=== PATIENT | male | born 1945 | race Caucasian/White ===

== ENCOUNTER 2024-06-02 12:41 | Outpatient (OUT) | payer MEDICARE, OTHER, SELFPAY ==
--- NOTE | 2024-06-02 12:58 | XR_ITS ---
[place] [id number] Patient Name: ALICIA GARCIA MRN: [id number] date: 1945 Sex: M Assigned Patient Location: [facility] Current Patient Location: Accession/Order Number: [id number] Exam Date: 06/02/2024 15:57 Report Date: 06/03/2024 17:01 At the request of: BINDU HORN MD Procedure: XR chest 2V Plain film chest Single view HISTORY: Preop assessment COMPARISON: None FINDINGS: SUPPORT DEVICES: None POSTSURGICAL CHANGES: None HEART: Within normal limits PULMONARY CJ: Within normal limits MEDIASTINUM: Unremarkable LUNGS AND PLEURA: No acute lung process, pleural effusion or pneumothorax identified. BONY STRUCTURES: No thoracic hyperostosis/so syndesmosis. ADDITIONAL FINDINGS None XR/XR chest 2V IMPRESSION: No acute process. Impression dictated by: Issac Mojica M.D.06/03/2024 5:01 PM Dictation Location: [place] Electronically authenticated by: [id number] Y Date: 06/03/2024 17:01
--- NOTE | 2024-06-02 13:32 | P.GSHP_ITS ---
History of Present Illness History of Present Illness Chief complaint: Bilateral kidney stones; S/P right stent placement Narrative: Mr. Milton Moody is a pleasant 78-year-old male who presents to presurgical testing for scheduled cystoscopy, left RG, left ureter holmium laser, possible left stent placement, possible cystoscopy, right ureter, possible holmium laser, possible stent removal with Dr. Vazquez on 06/05/2024. He presents today with significant complaints of right-sided flank pain and frequency in urination and states that he is ready to be pain-free. Review of Systems ROS Narrative REVIEW OF SYSTEMS: Negative except as stated in HPI, ten or more systems reviewed. Constitutional: No fever, chills, weakness ENT: No sore throat or epistaxis Cardiovascular: No edema, chest pain, palpitations, or activity intolerance Respiratory: No shortness of breath, cough, or wheezing Musculoskeletal: No joint pain or swelling Gastrointestinal: No abdominal pain, constipation, diarrhea, or vomiting Genitourinary: Has complaints of frequency in urination and significant right- sided flank pain Neurological: No numbness, tingling, weakness, or headache Psychiatric: No mood changes PFSH PFS Medical History (Updated 06/02/24 @ 13:12 by Jessie Mckinley) Osteoarthritis ?M19.90 - Unspecified osteoarthritis, unspecified site (ICD-10) Kidney stones ?N20.0 - Calculus of kidney (ICD-10) GERD (gastroesophageal reflux disease) ?K21.9 - Gastro-esophageal reflux disease without esophagitis (ICD-10) Hypothyroidism ?E03.9 - Hypothyroidism, unspecified (ICD-10) Urinary tract infection ?N39.0 - Urinary tract infection, site not specified (ICD-10) Urethral stricture ?N35.919 - Unspecified urethral stricture, male, unspecified site (ICD-10) Right flank pain ?R10.9 - Unspecified abdominal pain (ICD-10) Renal failure ?N19 - Unspecified kidney failure (ICD-10) Personal history of kidney stones ?Z87.442 - Personal history of urinary calculi (ICD-10) Nocturia ?R35.1 - Nocturia (ICD-10) Hypertension ?I10 - Essential (primary) hypertension (ICD-10) 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 - termite treater helper (current) use of anticoagulants (ICD-10) Gallstone ?K80.20 - Calculus of gallbladder without cholecystitis without obstruction (ICD-10) Frequent urination ?R35.0 - Frequency of micturition (ICD-10) Elevated PSA ?R97.20 - Elevated prostate specific antigen [PSA] (ICD-10) Elevated cholesterol ?E78.00 - Pure hypercholesterolemia, unspecified (ICD-10) Coronary artery disease ?I25.10 - Atherosclerotic heart disease of [place] coronary artery without angina pectoris (ICD-10) BPH with urinary obstruction ?N40.1 - Benign prostatic hyperplasia with lower urinary tract symptoms (ICD- 10) ?N13.8 - Other obstructive and reflux uropathy (ICD-10) BMI 25.0-25.9,adult ?Z68.25 - Body mass index [BMI] 25.0-25.9, adult (ICD-10) Surgical History (Updated 06/02/24 @ 13:12 by Jessie Mckinley) History of tonsillectomy and adenoidectomy ?Z90.89 - Acquired absence of other organs (ICD-10) History of cholecystectomy ?Z90.49 - Acquired absence of other specified parts of digestive tract (ICD- 10) History of back surgery ?Z98.890 - Other specified postprocedural states (ICD-10) History of heart artery stent ?Z95.5 - Presence of coronary angioplasty implant and graft (ICD-10) History of lithotripsy ?Z98.890 - Other specified postprocedural states (ICD-10) History of prostate surgery ?Z98.890 - Other specified postprocedural states (ICD-10) History of cystoscopy ?Z98.890 - Other specified postprocedural states (ICD-10) Family History (Updated 06/02/24 @ 13:05 by Jessie Mckinley) Other Family history of COPD (chronic obstructive pulmonary disease) Family history of colon cancer Family history of coronary artery disease Family history of emphysema Family history of heart disease Family history of hypertension Family history of myocardial infarction Social History (Updated 06/02/24 @ 13:03 by Jessie Mckinley) Within the past year, how often did you have a drink containing alcohol: never Score interpretation: A score less than 4 is consistent with normal alcohol consumption. Smoking status: Never smoker Non-prescribed substance use: denies use Previous occupational history: retired Highest level of school completed/degree received: Associate degree: occupational, technical, vocational program Meds Home Medications and Allergies Home Medications ?Medication ?Instructions ?Recorded ?Confirmed ?Type amlodipine 10 mg tablet 10 mg PO DAILY 06/02/24 06/02/24 History aspirin 81 mg chewable tablet 81 mg PO DAILY 06/02/24 06/02/24 History (Aspirin Childrens) levothyroxine 100 mcg capsule 100 mcg PO DAILY 06/02/24 06/02/24 History omeprazole 40 mg capsule,delayed 40 mg PO DAILY 06/02/24 06/02/24 History release phenazopyridine 100 mg tablet 100 mg PO TID 06/02/24 06/02/24 History (Pyridium) Allergies Allergy/AdvReac Type Severity Reaction Status Date / Time morphine Allergy Intermediate syncope Verified 06/02/24 12:59 Exam Narrative Exam Narrative: Constitutional: Awake, alert, comfortable, well-appearing, nontoxic, interactive, vital signs as charted Head: Normocephalic, atraumatic Eyes: Conjunctiva and lids normal to inspection, pupils normal ENT: Tympanic membranes pearly liang, nonerythematous, noninjected, naris patent, posterior oropharynx clear, oral mucosa moist Neck: Supple, normal appearance, normal range of motion, no meningeal signs, no lymphadenopathy Respiratory: No respiratory distress, breath sounds clear Cardiovascular: Regular rate and rhythm, strong and regular heart tones Abdomen: Nontender, normal bowel sounds, soft, with right sided CVA tenderness Musculoskeletal: Normal gait, no swelling or edema Skin: No rashes or induration, no lesions, only visible skin inspected Neuro: No neurological deficits, normal sensation Psychiatric: Oriented ?3, normal affect Assessment and Plan Assessment and Plan (1) Left renal stone: (2) Right kidney stone: Plan Plan is for cystoscopy left RG, left ureter holmium laser, possible left stent placement, cystoscopy, right ureter hospital holmium laser possible right stent removal with Dr. Vazquez on date of surgery 06/05/2024
== END 2024-06-02 12:42 | disposition home or self-care (01) ==
LOC: PST 12:46
PROVIDERS: PCP Family Medicine; Visit Provider Urology
DX: Z01.810 Encounter for preprocedural cardiovascular examination (principal); Z01.818 Encounter for other preprocedural examination; N20.0 Calculus of kidney
CPT/HCPCS: 71046; G0463

== ENCOUNTER 2024-06-05 08:38 | Day surgery (SDC) | payer MEDICARE, OTHER, SELFPAY ==
[2024-06-02 13:03] VITALS: BP 169/65; PULSE 51; TEMP 36.5; O2SAT 96; BMI 25.0
[2024-06-05] VITALS (8 sets, daily range): BP systolic 151–164; BP diastolic 82–93; PULSE 78–90; TEMP 36.3–36.4; O2SAT 93–97; BMI 24.9
[2024-06-05] MEDS: LACTATED RINGER'S SOLUTION 1,000 ML 50 ML IV (09:11)
[2024-06-05] MEDS: CEFAZOLIN SODIUM 2 GM/50 ML D5W PREMIX IV (10:25)
--- NOTE | 2024-06-05 11:31 | P.URON_ITS ---
Urology Surgery Operative Note Operative Note Procedure Date: 06/05/24 Time Out Performed: yes Pre-op Diagnosis: Left renal calculi; status post right ureteroscopic laser lithotripsy and right stent placement Post-op Diagnosis: same as pre-op Procedures performed: 1. Cystoscopy. 2. Left ureteroscopy. 3. Left pyeloscopy. 4. Thulium laser lithotripsy of large left renal calculi burden. 5. Placement of 7 [place] variable length left ureteral stent. 6. Right stent removal. 7. Right ureteroscopy. Anesthesia: GETA Primary Surgeon: Daniel Vazquez Complications: None Estimated blood loss (mL): 5 Findings: Large left renal stone burden Specimens: None Drains: 7 [place] variable length left ureteral stent Indications for Procedures: This gentleman had a large bilateral stone burden. His right side was done the other week and he has been stented on the right. He now presents for left ureteroscopic laser lithotripsy stent placement and possible right ureteroscopy and stent change or removal. He has signed an informed consent after risks were explained. Detailed description of Procedure: The patient was brought to the operating room and placed on the operating room table in the supine position. SCDs were placed on the lower extremities and turned on and functioning during the entire case. Timeout was done by all parties in the room. We all agreed upon the patient's identification and the planned procedures for this patient. Genn. anesthesia was then administered. The patient was then repositioned into the modified dorsal lithotomy position. All pressure points were satisfactorily padded. Genitalia were sterilely prepped and draped in usual fashion. I started by passing a 22 [place] Olympus cystoscope per urethra and into the bladder. The none encrusted right stent was identified. I passed a wire up the left side and then removed to the cystoscope. A 10/12 access sheath was passed over the wire and up to the L5 level. The stylette and wire were then removed. I then passed a flexible ureteroscope through the access sheath and into the ureter. I ascended up the ureter and then went into the kidney. I looked in the upper mid and lower pole calyces. In the upper pole calyces there were several Piyush's plaques but no true stones. In the midpole calyces there were no stones. In the lower pole calyces there were 3 sizable stones each at least 1 cm. I started at the largest of the 3 and used a 200 Angstrom laser fiber and the thulium laser at 10 W on the dusting mode. I was able to dust the stone down to simply dust and less than 1 mm pieces. I then similarly dusted the other 2 stones. Endoscopically there was no remaining formed stone remaining. Fluoroscopically this was corroborated. The scope was then removed. A wire was passed up into the kidney and the sheath was removed. Cystoscope was loaded over the wire and a 7 [place] variable length stent was passed into the left kidney. The wire was removed and there was good curls in the kidney and in the bladder. A grasper was used and the right stent was grasped and brought out the urethral meatus. A wire was slid up the stent into the kidney and the old stent was removed. A flexible ureteroscope was passed over the wire and I ascended up the ureter into the kidney. There was no evidence of any formed stone. The wire and ureteroscope were then removed. Cystoscope was passed back in the bladder. The bladder was drained of its contents and the scope was removed. The anest hetic was then reversed. He was then transferred to a [facility] bed and wheeled to PACU in stable condition.
--- NOTE | 2024-06-05 12:09 | PC.NURSE ---
Voided 200cc watermelon colored urine in urinal without difficulty
== END 2024-06-05 13:14 | disposition home or self-care (01) ==
PROVIDERS: PCP Family Medicine; Visit Provider Urology
PROC: (CPT 52356; principal; 2024-06-05 10:05)
DX: N20.0 Calculus of kidney (principal); N40.0 Benign prostatic hyperplasia without lower urinary tract symptoms; I25.10 Atherosclerotic heart disease of native coronary artery without angina pectoris; E78.00 Pure hypercholesterolemia, unspecified; I10 Essential (primary) hypertension; Z87.442 Personal history of urinary calculi; E03.9 Hypothyroidism, unspecified; K21.9 Gastro-esophageal reflux disease without esophagitis; Z95.5 Presence of coronary angioplasty implant and graft; Z90.49 Acquired absence of other specified parts of digestive tract
CPT/HCPCS: 52356; 76000; J0690; J1100; J2250; J2371; J2405; J2704; J3010